=== PATIENT | male | born 1950 | race Two or more races ===

== ENCOUNTER → 2023-10-16 | Outpatient (BNVA) | payer MEDICARE, OTHER, SELFPAY | END | disposition home or self-care (01) | PROVIDERS: PCP Physician Assistant; Referring Provider Physician Assistant; Visit Provider Urology | DX: N40.1 Benign prostatic hyperplasia with lower urinary tract symptoms (principal); R39.198 Other difficulties with micturition; Z53.8 Procedure and treatment not carried out for other reasons ==